=== PATIENT | male | born 1965 | race American Indian/Alaskan Native ===

== ENCOUNTER 2017-09-02 07:27 | Emergency (ER) | payer SELFPAY ==
[2017-09-02] MEDS ORDERED: Sodium Chloride 0.9% 1,000 ML IV ONE (07:59)
[2017-09-02] MEDS ORDERED: Albuterol 0.083% Inhal Sol (2.5 mg/3 mL) UD IH STA (07:59)
[2017-09-02] MEDS ORDERED: MethylPREDNISolone 40 mg Vial IVP STA (07:59)
--- NOTE | 2017-09-02 08:02 | C.PDOC ---
History Of Present Illness 52 yo male come in for evaluation of chest tightness, SOB developed this AM. Pt admits," symptoms intermittent for past 2 weeks or month and worse when Im surrounded by smokers". Pt admits, "this AM, worse the worse episode, I could not take breath, my chest was so tight". Pt admits, always was sensitive to second hand smoking. Otherwise, pt denies fever, chills, recent illness, headache, dizziness, neck pain, palpitation, diaphoresis, abd. pain, N/V/D, back pain, weakness. Ambulate to Ed for evaluation, not in any apparent distress. Time Seen by Provider: 09/02/17 07:48 Chief Complaint (Nursing): Chest Pain History Per: Patient History/Exam Limitations: no limitations Onset/Duration Of Symptoms: Intermittent Episodes Current Symptoms Are (Timing): Worse Quality: Tightness Associated Symptoms: denies: Nausea, Diaphoresis Recent travel outside of the [place]: No Past Medical History Reviewed: Historical Data, Nursing Documentation, Vital Signs Vital Signs: Last Vital Signs Temp 98.8 F 09/02/17 09:40 Pulse 62 09/02/17 09:40 Resp 18 09/02/17 09:40 BP 128/83 09/02/17 09:40 Pulse Ox 99 09/02/17 09:58 - Medical History PMH: HTN, Hypercholesterolemia Other PMH: Morbid obesity Family History: States: No Known Family Hx - Social History Hx Alcohol Use: No Hx Substance Use: No (Denied) - Immunization History Hx Tetanus Toxoid Vaccination: No Hx Influenza Vaccination: No (2016) Hx Pneumococcal Vaccination: No Review Of Systems Except As Marked, All Systems Reviewed And Found Negative. Constitutional: Negative for: Fever, Chills ENT: Negative for: Throat Pain Cardiovascular: Positive for: Chest Pain. Negative for: Palpitations Respiratory: Positive for: Shortness of Breath. Negative for: Cough Gastrointestinal: Negative for: Nausea, Vomiting, Abdominal Pain Musculoskeletal: Negative for: Neck Pain Skin: Negative for: Rash Neurological: Negative for: Headache, Dizziness Physical Exam - Physical Exam Appears: Well, Non-toxic, No Acute Distress Skin: Normal Color, Warm, Dry, No Rash Eye(s): bilateral: PERRL Nose: No Flaring, No Discharge Oral Mucosa: Moist, No Drooling Tongue: Normal Appearing Lips: Normal Appearing Throat: No Drooling Neck: No Midline Cervical Tenderness, No Step Off Deformity, Supple Cardiovascular: Rhythm Regular, No Friction Rub, No Murmur, No JVD, Other ((-) carotid bruits B/L) Respiratory: No Decreased Breath Sounds, No Accessory Muscle Use, No Rales, No Rhonchi, No Stridor, No Wheezing Gastrointestinal/Abdominal: Soft, No Tenderness, No Distention, No Guarding Back: No CVA Tenderness, No Vertebral Tenderness Extremity: Normal ROM, No Pedal Edema, No Swelling Neurological/Psych: Oriented x3, Normal Speech ED Course And Treatment - Laboratory Results Result Diagrams: 09/02/17 08:02 09/02/17 08:02 Lab Interpretation: Normal ECG: Interpreted By Me, Viewed By Me (and ED attending) ECG Rhythm: Sinus Rhythm ECG Interpretation: Normal Interpretation Of ECG: SR@67/min, LAD, T wave inversion in III, no acute ST-T changes. O2 Sat by Pulse Oximetry: 99 Pulse Ox Interpretation: Normal - Radiology CXR: Interpreted by Me, Viewed By Me CXR Interpretation: Yes: No Acute Disease Progress Note: On re-evaluation, pt is walking, repotrs " better". Afebrile, hemodynamicaly stable. Non-toxic. PulsEOx 99% RA. ENT: no acute findings. neck: Supple, (-)JVD, (-) carotid bruits. Lungs: CTA B/L, BS equal B/L. CVS: ( +)S1S2,reg., (-) murmur. ABd: benign, (-) guarding, (-) rebound. Neuorlogicaly intact. Blood work, imaging review with ED attending, pt has clinical findings c/w 2weeks intermittent Chest pain, nos. Troponin, DDImer - negative. Discharge with outpt f/u recommend at this time . results review and discussed with pt. Pt understand and agrees with discharges " I would not stay in hospital anyway". Disposition Counseled Patient/Family Regarding: Diagnosis, Need For Followup, Rx Given - Disposition Referrals: at [facility] [Outside] Disposition: HOME/ ROUTINE Disposition Time: 09:35 Condition: STABLE Additional Instructions: FOLLOW UP WITH PMD AND CARDIOLOGY IN 1-2 DAYS FOR RE-EVALUATION. RETURN TO ED IF ANY WORSENING OR NEW CHANGES. Prescriptions: Ibuprofen [Motrin Tab] 600 mg PO Q6 #20 tab Methocarbamol [Robaxin] 500 mg PO TID #14 tab Pantoprazole Sodium [Protonix] 40 mg PO DAILY #14 ect Instructions: Chest Pain (ED) Forms: [facility] (Latvian) - Clinical Impression Clinical Impression: Chest pain - PA / REVENUE SPECIALIST / Resident Statement MD/DO has reviewed & agrees with the documentation as recorded. - Scribe Statement The provider has reviewed the documentation as recorded by the Scribe SM All medical record entries made by the Scribe were at my direction and personally dictated by me. I have reviewed the chart and agree that the record accurately reflects my personal performance of the history, physical exam, medical decision making, and the department course for this patient. I have also personally directed, reviewed, and agree with the discharge instructions and disposition.
[2017-09-02 08:08] LABS: BASO % 0.5 % (0.0-2.0); EOS # 0.1 K/uL (0.0-0.7); EOS % 1.8 % (0.0-4.0); LYMPH # 3.1 K/uL (1.0-4.3); LYMPH % 50.6 % (20.0-40.0); MEAN CELL VOLUME 79.2 fL (80.0-94.0); MEAN CORPUSCULAR HEMOGLOBIN 26.4 pg (27.0-31.0); MEAN CORPUSCULAR HGB CONC 33.3 g/dL (33.0-37.0); MEAN PLATELET VOLUME 8.1 fL (7.2-11.7); MONO # 0.4 K/uL (0.0-0.8); MONO % 6.9 % (0.0-10.0); NRBC % 0.1 % (0.0-2.0); RED CELL DISTRIBUTION WIDTH 14.4 % (11.5-14.5)
[2017-09-02] MEDS ORDERED: Albuterol 0.083% Inhal Sol (2.5 mg/3 mL) UD ONE (08:18)
[2017-09-02] MEDS ORDERED: Sodium Chloride 0.9% 1,000 ML ONE (08:19)
[2017-09-02 08:20] LABS: CHLORIDE 98 mmol/L (98-107); POTASSIUM 4.1 mmol/L (3.6-5.2); SODIUM 135 mmol/L (132-148)
[2017-09-02] MEDS ORDERED: MethylPREDNISolone 40 mg Vial ONE (08:21)
[2017-09-02 08:22] LABS: ALB/GLOB RATIO 1.2 (1.0-2.1); ALKALINE PHOSPHATASE 67 U/L (38-126); AST/SGOT 19 U/L (17-59); BILIRUBIN,TOTAL 0.6 mg/dL (0.2-1.3); CARBON DIOXIDE 27 mmol/L (22-30); GFR AFRICAN-AMERICAN > 60; TOTAL PROTEIN 7.5 g/dL (6.3-8.3)
[2017-09-02 08:23] LABS: ALT/SGPT 26 U/L (21-72); BLOOD UREA NITROGEN 16 mg/dL (9-20); CALCIUM 8.8 mg/dl (8.6-10.4); GLUCOSE,RANDOM 87 mg/dL (75-110)
[2017-09-02 08:59] LABS: PARTIAL THROMBOPLASTIN TIME 31 SECONDS (21-34)
[2017-09-02 09:14] LABS: RBC URINE < 1 /hpf (0-3); URINE BILIRUBIN NEGATIVE (NEGATIVE); URINE BLOOD NEGATIVE (NEGATIVE); URINE COLOR Yellow (YELLOW); URINE GLUCOSE (UA) NORMAL (Normal); URINE KETONE NEGATIVE (NEGATIVE); URINE LEUKOCYTE ESTERASE NEG Leu/uL (Negative); URINE PROTEIN NEGATIVE (NEGATIVE); URINE UROBILINOGEN NORMAL mg/dL (0.2-1.0); WBC URINE < 1 /hpf (0-5)
--- NOTE | 2017-09-02 09:34 | RAD ---
HISTORY: SOB COMPARISON: No prior. TECHNIQUE: Chest PA and lateral FINDINGS: LUNGS: No active pulmonary disease. PLEURA: No significant pleural effusion identified. No pneumothorax apparent. CARDIOVASCULAR: Normal. OSSEOUS STRUCTURES: Mild thoracic spondylosis VISUALIZED UPPER ABDOMEN: Normal. OTHER FINDINGS: None. IMPRESSION: No active disease.
[2017-09-02 09:45] VITALS: BP 128/83; PULSE 62; RESP 18; TEMP 98.8
[2017-09-02 09:55] VITALS: O2SAT 99
== END 2017-09-02 10:07 | disposition home or self-care (01) ==
LOC: C.ER 07:27
DX: R07.9 Chest pain, unspecified (principal)
CPT/HCPCS: 71020; 80053; 81001; 83880; 84484; 85025; 85378; 85610; 85730; 94640; 96361; 96374; 96375; 99285; J2920; J7040

== ENCOUNTER 2019-02-27 09:58 | Inpatient (IN) | payer BC, OTHER | END 2019-02-28 20:20 | disposition home or self-care (01) | LOC: C.ER 09:58 → C.5S 12:46 | DX: K40.90 Unilateral inguinal hernia, without obstruction or gangrene, not specified as recurrent (principal); N50.89 Other specified disorders of the male genital organs; I10 Essential (primary) hypertension; E78.5 Hyperlipidemia, unspecified; E78.00 Pure hypercholesterolemia, unspecified ==